=== PATIENT | female | born 1990 | race African-American/Black ===

== ENCOUNTER 2017-09-10 15:54 | Emergency (ER) | payer OTHER ==
--- NOTE | 2017-09-10 16:20 | PDOC ---
Rapid Medical Evaluation Time Seen by Provider: 09/10/17 16:13 Medical Evaluation: I have performed a brief in-person evaluation of this patient. The patient presents with a chief complaint of: Pertinent physical exam findings: I have ordered the following: The patient will proceed to the ED for further evaluation.
[2017-09-10 16:21] VITALS: BMI 48.4
--- NOTE | 2017-09-10 16:25 | PDOC ---
History of Present Illness - General Stated Complaint: FLU LIKE SYMPTOMS/BACK PAIN Time Seen by Provider: 09/10/17 16:13 - History of Present Illness Initial Comments: 09/10/17 17:22 This is a 27 yo F presenting to the ER with a complaint of back pain, fevers, nausea, vomiting, headache No diarrhea (+) vomiting No recent travel No ill contacts (+) cough, productive Past History - Past Medical History Allergies/Adverse Reactions: Allergies Allergy/AdvReac Type Severity Reaction Status Date / Time No Known Allergies Allergy Verified 09/10/17 18:37 Home Medications: Ambulatory Orders Albuterol Sulfate Inhaler - [Ventolin HFA Inhaler -] 2 inh IH Q6H #1 inh Ibuprofen 800 mg PO TID #30 tablet 09/10/17 Oseltamivir Phosphate [Tamiflu] 75 mg PO BID #10 capsule 09/10/17 Sulfamethoxazole/Trimethoprim [Bactrim *Ds*] 1 tab PO BID #14 tablet 09/10/17 - Suicide/Smoking/Psychosocial Hx Smoking History: Never smoked Have you smoked in the past 12 months: No Information on smoking cessation initiated: No Hx Alcohol Use: No Drug/Substance Use Hx: No Review of Systems - Review of Systems Able to Perform ROS?: Yes Comments:: 09/10/17 17:29 GENERAL/CONSTITUTIONAL: Yes: fever, chills, weakness, loss of appetite. HEAD, EYES, EARS, NOSE AND THROAT: No: change in vision, ear pain, discharge, sore throat, throat swelling. CARDIOVASCULAR: Yes:chest pain with cough, No: lightheadedness, palpitations, syncope RESPIRATORY: Yes: cough, shortness of breath No: wheezing, GASTROINTESTINAL: Yes: nausea, vomiting No: diarrhea GENITOURINARY: Yes: back pain No: dysuria, hematuria, frequency, urgency MUSCULOSKELETAL: No: back pain, neck pain, joint pain, muscle swelling or pain SKIN AND BREASTS: No: lesions, pallor, rash or easy bruising. NEUROLOGIC: yes: headache, weakness No: vertigo, paresthesias, weakness ENDOCRINE: No: unexplained weight gain or loss HEMATOLOGIC/LYMPHATIC: No: anemia, easy bleeding, swelling nodes. *Physical Exam - Vital Signs Last Vital Signs Temp Pulse Resp BP Pulse Ox 102.4 F H 125 H 20 91/57 96 09/10/17 16:17 09/10/17 16:17 09/10/17 16:17 09/10/17 16:17 09/10/17 16:17 - Physical Exam Comments: 09/10/17 17:36 GENERAL: The patient is in no acute distress, rigors on examination, . HEAD: Normal EYES: PERRLA, EOMI, sclera anicteric, conjunctiva clear. ENT: Ears normal, nares patent, oropharynx clear without exudates. Moist mucous membranes. NECK: Normal range of motion, supple no nuchal rigidity LUNGS: Breath sounds equal, clear to auscultation bilaterally. No wheezes, and no crackles. HEART:Regular rate and rhythm, normal S1 and S2 without murmur, rub or gallop. ABDOMEN: Soft, nontender, normoactive bowel sounds. No guarding, no rebound. EXTREMITIES: Normal range of motion, no edema. NEUROLOGICAL: Cranial nerves II through XII grossly intact. Normal speech. No focal neurological deficits. MUSCULOSKELETAL: Back diffusely tender to palpation SKIN: Warm, Dry, normal turgor, no rashes or lesions noted. ED Treatment Course - LABORATORY CBC & Chemistry Diagram: 09/10/17 18:20 09/10/17 18:20 Medical Decision Making - Medical Decision Making 09/10/17 17:41 27-year-old female presented to emergency department with a complaint of fevers , back pain Pt presents to the ER with a complaint of fever , myalgias DD: Pneumonia, influenza, UTI, Pyelonephritis Will do: Labs, CXR, flu swab Will give: IVF, Toradol, re assess Suspect this patient has the flu. Awaiting all labs. Patient signed out to Dr. Stuart *DC/Admit/Observation/Transfer Diagnosis at time of Disposition: Influenza A, Bronchitis - Discharge Dispostion Disposition: HOME Condition at time of disposition: Improved - Prescriptions Prescriptions: Albuterol Sulfate Inhaler - [Ventolin HFA Inhaler -] 2 inh IH Q6H #1 inh Ibuprofen 800 mg PO TID #30 tablet Oseltamivir Phosphate [Tamiflu] 75 mg PO BID #10 capsule Sulfamethoxazole/Trimethoprim [Bactrim *Ds*] 1 tab PO BID #14 tablet - Referrals Referrals: Ayanna Weiss MD [Primary Care Provider] - - Patient Instructions Printed Discharge Instructions: DI for Acute Bronchitis, DI for Influenza -- Adult Additional Instructions: Take medications as directed. Drink plenty of fluids. Have plenty of bed rest. Follow up with doctor in two days for re-evaluation. Return if any problems. - Post Discharge Activity
[2017-09-10] MEDS ORDERED: KETOROLAC TROMETHAMINE 30 MG/1 ML VIAL IVPUSH ONE (16:38)
[2017-09-10] MEDS ORDERED: SODIUM CHLORIDE 1,000 ML IV STA ×3 (16:38→21:19)
[2017-09-10 18:34] LABS: BASO % 0.7 % (0-2.0); HEMATOCRIT 38.9 % (32.4-45.2); HEMOGLOBIN 13.2 GM/dL (10.7-15.3); LYMPH % 6.2 % (8-40); MCH 30.7 pg (25.7-33.7); MCHC 33.9 g/dl (32.0-36.0); MEAN CELL VOLUME 90.4 fl (80-96); MEAN PLT VOLUME 8.1 fl (7.5-11.1); MONO % 7.1 % (3.8-10.2); PLATELET COUNT 244 K/MM3 (134-434); RDW 13.1 % (11.6-15.6); WHITE BLOOD COUNT 9.7 K/mm3 (4.0-10.0)
[2017-09-10 19:06] VITALS: BP 103/51; PULSE 117; TEMP 102.5
[2017-09-10 19:12] LABS: ALBUMIN 3.9 g/dl (3.4-5.0); ANION GAP 10 (8-16); BLOOD UREA NITROGEN 7 mg/dL (7-18); CALCIUM 8.6 mg/dL (8.5-10.1); CHLORIDE 105 mmol/L (98-107); CO2 21 mmol/L (21-32); CREATININE 0.9 mg/dL (0.55-1.02); GLUCOSE,RANDOM 100 mg/dL (74-106); POTASSIUM 3.5 mmol/L (3.5-5.1); SGOT/AST 14 U/L (15-37); SGPT/ALT 20 U/L (12-78); SODIUM 136 mmol/L (136-145)
[2017-09-10 19:13] LABS: ALK PHOS 44 U/L (45-117); BILIRUBIN,TOTAL 0.6 mg/dL (0.2-1.0); TOT PROT 7.2 g/dl (6.4-8.2)
[2017-09-10 19:49] LABS: URINE APPEARANCE SLCLOUDY; URINE BILIRUBIN NEGATIVE (NEGATIVE); URINE BLOOD NEGATIVE (NEGATIVE); URINE COLOR LTYELLOW; URINE GLUCOSE (UA) NEGATIVE (NEGATIVE); URINE KETONE 1+ (NEGATIVE); URINE LEUK ESTERASE NEGATIVE (NEGATIVE); URINE NITRITE NEGATIVE (NEGATIVE)
[2017-09-10 20:23] LABS: URINE PROTEIN 1+ (NEGATIVE)
[2017-09-10 20:30] LABS: EPI CELLS RARE /HPF (FEW)
[2017-09-10] MEDS ORDERED: OSELTAMIVIR PHOSPHATE 75 MG CAPSULE PO ONE (21:19)
[2017-09-10] MEDS ORDERED: ACETAMINOPHEN 325 MG TABLET (FP) PO ONE (21:23)
[2017-09-10] MEDS ORDERED: ACETAMINOPHEN 325 MG TABLET (FP) ONE (21:38)
[2017-09-10] MEDS ORDERED: OSELTAMIVIR PHOSPHATE 75 MG CAPSULE ONE (21:38)
[2017-09-10] MEDS ORDERED: SULFAMETHOXAZOLE/TRIMETHOPRIM 800MG/160MG D.S. TABLET PO ONE (22:23)
[2017-09-10] MEDS ORDERED: ALBUTEROL SO4 2.5/IPRATROPIUM 0.5 INH SOL 3 ML VIAL.NEB. NEB ONE ×2 (22:24→22:30)
--- NOTE | 2017-09-10 22:34 | PDOC ---
*Physical Exam - Vital Signs Last Vital Signs Temp Pulse Resp BP Pulse Ox 102.5 F H 117 H 20 103/51 95 09/10/17 19:05 09/10/17 19:05 09/10/17 16:17 09/10/17 19:05 09/10/17 19:05 ED Treatment Course - LABORATORY CBC & Chemistry Diagram: 09/10/17 18:20 09/10/17 18:20 - ADDITIONAL ORDERS Additional order review: Laboratory Results 09/10/17 09/10/17 09/10/17 19:35 18:50 18:20 Sodium 136 Potassium 3.5 Chloride 105 Carbon Dioxide 21 Anion Gap 10 BUN 7 Creatinine 0.9 Creat Clearance w eGFR > 60 Random Glucose 100 Calcium 8.6 Total Bilirubin 0.6 AST 14 L ALT 20 Alkaline Phosphatase 44 L Total Protein 7.2 Albumin 3.9 Serum , Qual Negative Urine Color Ltyellow Urine Appearance Slcloudy Urine pH 6.0 Ur Specific Dawson 1.014 Urine Protein 1+ H Urine Glucose (UA) Negative Urine Ketones 1+ H Urine Blood Negative Urine Nitrite Negative Urine Bilirubin Negative Urine Urobilinogen 2.0 H Urine WBC (Auto) 2 Urine RBC (Auto) 1 Ur Epithelial Cells Rare 09/10/17 18:50 Influenza Types A,B Antigen (TREVOR) - Final Nasopharyngeal Swab - Final 09/10/17 18:20 RBC 4.30 MCV 90.4 MCHC 33.9 RDW 13.1 MPV 8.1 Neutrophils % 86.0 H Lymphocytes % 6.2 L Monocytes % 7.1 Eosinophils % 0.0 Basophils % 0.7 - Medications Given in the ED: ED Medications Discontinued Medications Generic Name Dose Route Start Last Admin Trade Name Freq PRN Reason Stop Dose Admin Acetaminophen 975 mg 09/10/17 21:23 09/10/17 21:44 Tylenol - PO 09/10/17 21:24 975 mg ONCE ONE Administration Sodium Chloride 1,000 mls @ 1,000 mls/hr 09/10/17 16:38 09/10/17 18:30 Normal Saline - IV 09/10/17 17:37 1,000 mls/hr ASDIR STA Administration Sodium Chloride 1,000 mls @ 1,000 mls/hr 09/10/17 17:23 09/10/17 19:39 Normal Saline - IV 09/10/17 18:22 1,000 mls/hr ASDIR STA Administration Sodium Chloride 1,000 mls @ 1,000 mls/hr 09/10/17 21:19 09/10/17 21:43 Normal Saline - IV 09/10/17 22:18 1,000 mls/hr ASDIR STA Administration Ketorolac Tromethamine 30 mg 09/10/17 16:38 09/10/17 18:30 Toradol Injection - IVPUSH 09/10/17 16:39 30 mg ONCE ONE Administration Oseltamivir Phosphate 75 mg 09/10/17 21:19 09/10/17 21:44 Tamiflu - PO 09/10/17 21:20 75 mg ONCE ONE Administration Medical Decision Making - Medical Decision Making 09/10/17 22:32 Pt found to have influenza A. Pt chest xray clear. Pt will be discharged to follow up with her pcp. Medications sent to her pharmacy. *DC/Admit/Observation/Transfer Diagnosis at time of Disposition: Influenza A, Bronchitis - Discharge Dispostion Disposition: HOME Condition at time of disposition: Improved Admit: No - Prescriptions Prescriptions: Albuterol Sulfate Inhaler - [Ventolin HFA Inhaler -] 2 inh IH Q6H #1 inh Ibuprofen 800 mg PO TID #30 tablet Oseltamivir Phosphate [Tamiflu] 75 mg PO BID #10 capsule Sulfamethoxazole/Trimethoprim [Bactrim *Ds*] 1 tab PO BID #14 tablet - Referrals Referrals: Ayanna Weiss MD [Primary Care Provider] - - Patient Instructions Printed Discharge Instructions: DI for Influenza -- Adult, DI for Acute Bronchitis Additional Instructions: Take medications as directed. Drink plenty of fluids. Have plenty of bed rest. Follow up with doctor in two days for re-evaluation. Return if any problems. - Post Discharge Activity
[2017-09-10] MEDS ORDERED: SULFAMETHOXAZOLE/TRIMETHOPRIM 800MG/160MG D.S. TABLET ONE (23:37)
== END 2017-09-10 23:46 | disposition home or self-care (01) ==
LOC: JER 15:54
PROC: 3E0F7GC Introduction of Other Therapeutic Substance into Respiratory Tract, Via Natural or Artificial Opening (ICD-10-PCS; principal; 2017-09-10)
PROC: 3E0337Z Introduction of Electrolytic and Water Balance Substance into Peripheral Vein, Percutaneous Approach (ICD-10-PCS; 2017-09-10)
PROC: 3E0333Z Introduction of Anti-inflammatory into Peripheral Vein, Percutaneous Approach (ICD-10-PCS; 2017-09-10)
DX: J10.1 Influenza due to other identified influenza virus with other respiratory manifestations (principal); J20.9 Acute bronchitis, unspecified; M54.5 Low back pain
CPT/HCPCS: 36415; 71046-TC; 80053; 81003; 81015; 84703; 85025; 87086; 87804; 99282-25